=== PATIENT | female | born 1980 | race Two or more races ===

== ENCOUNTER 2023-08-07 08:47 | Observation (INO) | payer BC, SELFPAY ==
[2023-08-07] VITALS (15 sets, daily range): BP systolic 106–133; BP diastolic 64–90; PULSE 65–91; RESP 12–22; TEMP 36.5–37.1; O2SAT 91–99; BMI 28.3; BMI 23.0
--- NOTE | 2023-08-07 | HP_ITS ---
Date:? 08/07/2023 CHIEF COMPLAINT:? Abdominal pain. HISTORY OF PRESENT ILLNESS:? Patient is a 43-year-old female who denies any medical problems, who was sent into the emergency room early this afternoon with a complaint of abdominal pain that began last evening, approximately 8:00 p.m., was initially periumbilical and localized to the right lower quadrant.? She has tenderness, pain with movement.? She did have some nausea and vomiting this morning, but has not vomited since then.? She has not eaten anything today.? Workup in the emergency room revealed normal laboratory evaluation.? She did have a CT scan of the abdomen and pelvis with IV contrast that revealed dilated, inflamed appendix along the right pericolic gutter with a small fecalith at the base of the appendix.? There was no evidence of abscess or perforation.? PAST SURGICAL HISTORY:? Patient does report that she has had a previous laparoscopy for gynecologic reasons in the remote past.? No other abdominal surgery.? No other surgical procedures.? ALLERGIES:? She has allergies to ibuprofen which causes a rash.? No other allergies.? MEDICATIONS:? No prescription medications or [id number] medications.? FAMILY HISTORY:? She denies any family history of GI malignancy or inflammatory bowel disease.? SOCIAL HISTORY:? She is a non-smoker.? She is .? She is employed in [employer].? Denies alcohol use or illicit drug use. REVIEW OF SYSTEMS:? Ten system review of systems is negative for recent weight loss or weight gain.? She denies increased fatigue or light-headedness.? Has had no earache or tinnitus.? No sinus congestion.? No sore throat or hoarseness.? No chest pain, palpitations or syncope.? No chronic cough, shortness of breath, hemoptysis.? She has had the abdominal pain, nausea, vomiting.? No bowel changes.? No diarrhea, constipation, decreased caliber of the stool.? ?No melena, hematochezia or bright red blood per rectum.? No dysuria, frequency, urgency or hematuria.? No headaches, seizures or tremors.? No easy bruising or bleeding.? No heat or cold intolerance.? No polydipsia, polyphagia or polyuria. PHYSICAL EXAM:? VITAL SIGNS:? Patient is afebrile.? Blood pressure is 119/73.? Pulse is 53 and regular.? Respiratory rate is 18.? O2 saturation is 98% on room air.? BMI is 23. GENERAL:? In general, she is a well developed, well nourished female, in mild distress secondary to abdominal pain. HEENT:? Normocephalic, atraumatic.? Sclerae anicteric.? Conjunctiva are not injected.? Oral mucosa is moist, without lesions.? NECK:? Supple.? There is no adenopathy, thyromegaly or JVD. LUNGS:? Clear bilaterally. CARDIAC EXAM:? Regular rhythm and rate without appreciable murmurs, rubs or gallops. ABDOMEN:? Soft.? There is positive bowel sounds, non-distended.? There is right lower quadrant peritoneal signs.? No masses, hepatosplenomegaly or hernias.? No CVA tenderness.? SKIN:? Warm and dry without lesions, rashes or ulcers. NEURO EXAM:? Non-focal.? Non-lateralizing.??? Patient is awake, alert, oriented with appropriate affect. MUSCULOSKELETAL EXAM:? Reveals normal muscle strength, mass and tone. IMAGING:? CT scan was personally reviewed. ASSESSMENT:? A 43-year-old female with less than 24 hour history of abdominal pain localized into the right lower quadrant, now with right lower quadrant peritoneal signs and CT scan with dilated, inflamed appendix with a small fecalith Indications, risks, benefits, alternatives of proceeding with laparoscopic appendectomy were explained extensively to the patient.? Informed consent was obtained.? Patient did receive Zosyn in the emergency room as well as hydration.? All of her questions were answered.? CC:? Patient?s family physician. RON
--- NOTE | 2023-08-07 | OP_ITS ---
OPERATION DATE: ??08/07/2023 PREOPERATIVE DIAGNOSIS:? Acute appendicitis. POSTOPERATIVE DIAGNOSIS:? Acute appendicitis. PROCEDURE:? Laparoscopic appendectomy. SURGEON:? Jace Guzman M.D. ANESTHESIA: ?General endotracheal. ESTIMATED BLOOD LOSS:? Less than 25 mL. INDICATIONS AND CONSENT:? Patient is a 43-year-old female who presented to the emergency room today for abdominal pain that began last evening.? It was mostly periumbilical and localized to the right lower quadrant.? She had normal laboratory evaluation, but workup revealed an inflamed, dilated appendix with small fecalith at the base of the appendix.? On exam, she did have right lower quadrant peritoneal signs.? ?Indications, risks, benefits, alternatives of proceeding with laparoscopic appendectomy were explained extensively to the patient, including risks of bleeding, infection, bowel injury, appendiceal stump leak, need for open procedure, blood clot, pulmonary embolus, heart attack, anesthetic complications and need for further surgery.? All of her questions were answered.? Informed consent was obtained. PROCEDURE:? Patient had been given IV antibiotics in the emergency room, as well as hydrated. ?She was brought to the operating room, placed in the supine position.? General anesthesia was induced.? Fuchs catheter was inserted using sterile technique.? The abdomen was prepped and draped in the usual steroid fashion.? A supraumbilical incision was made with a scalpel blade and carried down through subcutaneous tissue using blunt dissection.? The fascia was grasped and incised.? Two 0 Vicryl stay sutures were placed on either side of the midline fascia.? Kwaku trocar was then inserted and secured using the stay sutures.? The abdomen was then insufflated with carbon dioxide to a pressure of 15 mm/Hg.? The scope was then inserted.? The abdomen was visualized.? Two 5 mm ports were then placed; one in the left lower quadrant and one in the suprapubic area, both under direct visualization.? The appendix was noted to be adherent to the right lateral abdominal side, along the pericolic gutter.? There was edema and some peritoneal adhesions.? The tip was freed up.? Adhesions were lysed sharply.? There was no evidence of perforation or abscess.? The base was mobilized as well and a window created in the avascular portion of the mesoappendix at the base of the appendix.? It was then stapled across the base using a 45 mm purple load of the endoscopic stapler.? There was good hemostasis in the staple line. ?The mesentery was then taken down in sections using the gold vascular medium reloads, two 45 mm length loads.? There was minimal oozing from the one staple line, which was controlled with a clip.? The appendix was then brought out in an Endocatch bag through the umbilical port site.? The abdomen was then copiously irrigated until clear.? There was minimal oozing where the appendix had been mobilized, all in the right pericolic gutter.? Therefore, a 15 round J-P drain was then placed in this area and brought out through the suprapubic port site.? It was secured to the skin using a 3-0 nylon suture and placed to closed bulb suction.? The abdomen was otherwise irrigated until clear.? The left lower quadrant port site was examined.? Upon withdrawal of the port, there was noted to be good hemostasis.? Kwaku trocar was then removed.? Fascia was closed with a 0 Vicryl figure of eight suture.? All port sites were infiltrated with 0.5% Marcaine.? The skin was then closed with interrupted 4-0 subcuticular Monocryl sutures and skin glue.? Sterile dressings were applied.? Sponge and needle counts were correct x2 per nursing personnel.? Patient tolerated the procedure well, was extubated and sent to recovery room in good condition. CC:? Patient?s family physician RON
--- NOTE | 2023-08-07 09:02 | ED.ABDPAIN1 ---
HPI - Abdominal Pain General Chief Complaint: Abdominal Pain Stated Complaint: ABDOMINALPAIN Time Seen by Provider: 08/07/23 08:56 Source: patient Mode of arrival: walk-in History of Present Illness HPI narrative: 43-year-old female presents for abdominal pain. It started about 8 PM last night, thirteen hours ago. It's been continuous. It started near her umbilicus and now is across her lower abdomen. No vomiting constipation or diarrhea. No known fever. No injury. Pain is continuous and severe. Related Data Allergies Allergy/AdvReac Type Severity Reaction Status Date / Time ibuprofen [From Motrin] AdvReac Severe Rash Verified 08/07/23 08:57 Review of Systems ROS Narrative A ten point review of systems is negative except as noted above. Exam Narrative Exam Narrative: Nurses note and vital signs reviewed and patient is not hypoxic. General: The patient appears well and in no apparent distress. Patient is resting comfortably on cart. Skin: Warm, dry, no pallor noted. There is no rash noted. Head: Normocephalic, atraumatic Eye: Normal conjunctiva, no drainage Ears, Nose, Mouth, and Throat: oral mucosa is moist. Nares patent. Cardiovascular: Regular Rate and Rhythm Respiratory: Patient is in no distress, no accessory muscle use, lungs are clear to auscultation, no wheezing, rales or rhonchi Back: non-tender GI: tenderness present across her lower abdomen. No rigidity or masses. Musculoskeletal: The patient has no evidence of calf tenderness, no pitting edema, symmetrical pulses noted bilaterally Neurological: A&O, normal speech Psychiatric: Cooperative Constitutional Vital Signs, click to edit/add: Last Vital Signs Temp 97.7 F 08/07/23 08:51 Pulse 65 08/07/23 11:30 Resp 14 08/07/23 11:30 BP 112/78 08/07/23 12:02 Pulse Ox 95 08/07/23 11:30 O2 Del Method Room Air 08/07/23 11:30 Course Vital Signs Vital signs: Vital Signs Temperature 97.7 F 08/07/23 08:51 Pulse Rate 80 08/07/23 08:51 Respiratory Rate 22 08/07/23 08:51 Blood Pressure 126/90 08/07/23 08:51 Pulse Oximetry 99 08/07/23 08:51 Oxygen Delivery Method Room Air 08/07/23 08:51 Temperature 97.7 F 08/07/23 08:51 Pulse Rate 65 08/07/23 11:30 Respiratory Rate 14 08/07/23 11:30 Blood Pressure 112/78 08/07/23 12:02 Pulse Oximetry 95 08/07/23 11:30 Oxygen Delivery Method Room Air 08/07/23 11:30 MDM - Abdominal Pain MDM Narrative Medical decision making narrative: acute appendicitis is identified on the CAT scan per radiologist. She had some liquid to drink about 6 AM and last ate food about midnight. I've spoken to Dr. Guzman and the patient is being admitted for appendectomy. She was given IV Zosyn here. Treatment diagnosis and disposition were discussed with the patient and her family. Differential Diagnosis Differential diagnosis: Likely abdominal pain, acute appendicitis, calculus of kidney, constipation and diverticulitis Lab Data Attestation: I reviewed the patient's lab results. Labs: Lab Results 08/07/23 Range/Units 09:00 WBC 8.0 (4.0-11.0) 10^3/uL RBC 4.03 L (4.20-5.40) 10^6/uL Hgb 11.6 L (12.0-16.0) g/dL Hct 35.4 L (36.0-48.0) % MCV 87.8 (81.0-99.0) fL MCH 28.8 (26.7-34.0) pg MCHC 32.8 (29.9-35.2) g/dL RDW 12.2 (11.0-15.0) % Plt Count 286 (150-450) 10^3/uL MPV 9.3 L (9.5-13.5) fL Neut % (Auto) 66.2 (43.0-75.0) % Lymph % (Auto) 26.0 (20.5-60.0) % [place] % (Auto) 6.0 (1.7-12.0) % Eos % (Auto) 1.3 (0.9-7.0) % Baso % (Auto) 0.4 (0.2-2.0) % Neut # (Auto) 5.3 (1.4-6.5) 10^3/uL Lymph # (Auto) 2.1 (1.2-3.8) 10^3/uL [place] # (Auto) 0.5 (0.3-0.8) 10^3/uL Eos # (Auto) 0.1 (0.0-0.7) 10^3/uL Baso # (Auto) 0.0 (0.0-0.1) 10^3/uL Abs Immat Gran (auto) 0.01 (0.00-0.03) 10^3/uL Imm/Tot Granulo (auto) 0.1 (0.0-0.5) % Sodium 134 L (136-145) mmol/L Potassium 3.0 L (3.5-5.1) mmol/L Chloride 100 (98-107) mmol/L Carbon Dioxide 25.1 (21.0-32.0) mmol/L Anion Gap 11.9 BUN 16.0 (7.0-18.0) mg/dL Creatinine 0.52 L (0.55-1.02) mg/dL Est GFR ( Amer) >60 (>=60) Est GFR (Non-Af Amer) >60 (>=60) BUN/Creatinine Ratio 30.8 Glucose 103 (74-106) mg/dL Calcium 8.7 (8.5-10.1) mg/dL Total Bilirubin 0.5 (0.2-1.0) mg/dL Direct Bilirubin 0.1 (0.0-0.2) mg/dL AST 22 (15-37) U/L ALT 25 (14-59) U/L Alkaline Phosphatase 77 (46-116) U/L Total Protein 7.9 (6.4-8.2) g/dL Albumin 4.0 (3.4-5.0) g/dL Globulin 3.9 g/dL Albumin/Globulin Ratio 1.0 Amylase 54 (25-115) U/L Lipase 35.0 (16.0-77.0) U/L Serum HCG, Qual Negative (NEGATIVE) Imaging Data CT scan - abdomen: Radiologist's impression: Procedure: CT abdomen pelvis w con EXAMINATION: CT abdomen pelvis w con, 08/07/2023 10:25 AM EST HISTORY: low abd pain COMPARISON: Pelvic ultrasound 05/11/2022 TECHNIQUE: CT of the abdomen, and pelvis was performed following administration of IV contrast. Oral contrast was not administered prior to the examination. Dose reduction techniques were achieved by using automated exposure control and/or adjustment of mA and/or kV according to patient size and/or use of iterative reconstruction technique. FINDINGS: Lung Bases: No acute findings visualized lower chest. Liver: Normal. Biliary tree: Normal. Gallbladder: Normal. Spleen: Normal. Pancreas: Normal. Adrenal glands: Normal. Kidneys and ureters: Normal. Bladder: Mild bladder wall thickening in part relates to underdistention. Reproductive organs: Uterus is grossly unremarkable, noting the endometrium is likely upper limits normal thickness. Left luteal cyst without suspicious adnexal mass. Gastrointestinal tract: Diminutive hiatal hernia. No abnormal bowel dilatation. Colonic diverticulosis, without findings of acute diverticulitis. The appendix appears fluid-filled, abnormally distended, with surrounding periappendiceal inflammation consistent with acute appendicitis; density at the appendiceal base relates to subcentimeter appendicolith versus inspissated contents. Peritoneum/retroperitoneum: No free fluid or gas. No organized drainable collection. Vasculature: Patent. No abdominal aortic aneurysm. Lymph nodes: Normal. Abdominal wall: No acute findings. Small fat-containing inguinal hernia bilaterally. Musculoskeletal: Degenerative change of the spine. IMPRESSION: 1. Acute appendicitis. No findings of perforation, or periappendiceal abscess formation. 2. Mild bladder wall thickening in part relates to underdistention. Correlate with urinalysis if there is clinical concern for cystitis. Electronically authenticated by: MARYANN CLEMENS Date: 08/07/2023 12:16 Discharge Plan Discharge Chief Complaint: Abdominal Pain Clinical Impression: Acute appendicitis Patient Disposition: Admitted as Observation Time of Disposition Decision: 12:32 Condition: Good
[2023-08-07 09:23] LABS: Basophils Percent Auto 0.4 % (0.2-2.0); Eosinophils Absolute Auto 0.1 10^3/uL (0.0-0.7); Eosinophils Percent Auto 1.3 % (0.9-7.0); Hematocrit 35.4 % (36.0-48.0); Hemoglobin 11.6 g/dL (12.0-16.0); Immature Granulocytes Abs Auto 0.01 10^3/uL (0.00-0.03); Immature Granulocytes Pct Auto 0.1 % (0.0-0.5); Lymphocytes Absolute Auto 2.1 10^3/uL (1.2-3.8); Mean Corpuscular HGB Conc 32.8 g/dL (29.9-35.2); Mean Corpuscular Hemoglobin 28.8 pg (26.7-34.0); Mean Corpuscular Volume 87.8 fL (81.0-99.0); Mean Platelet Volume 9.3 fL (9.5-13.5); Monocytes Absolute Auto 0.5 10^3/uL (0.3-0.8); Neutrophils Absolute Auto 5.3 10^3/uL (1.4-6.5); Neutrophils Percent Auto 66.2 % (43.0-75.0); Platelet Count 286 10^3/uL (150-450); Red Blood Count 4.03 10^6/uL (4.20-5.40); Red Cell Distribution Width 12.2 % (11.0-15.0)
[2023-08-07 09:29] LABS: HCG Qualitative NEGATIVE (NEGATIVE)
[2023-08-07 09:32] LABS: Alanine Aminotransferase 25 U/L (14-59); Alkaline Phosphatase 77 U/L (46-116); Amylase 54 U/L (25-115); Anion Gap 11.9; Aspartate Amino Transferase 22 U/L (15-37); BUN Creatinine Ratio 30.8; Bilirubin Direct 0.1 mg/dL (0.0-0.2); Bilirubin Total 0.5 mg/dL (0.2-1.0); Calcium 8.7 mg/dL (8.5-10.1); Carbon Dioxide 25.1 mmol/L (21.0-32.0); Chloride 100 mmol/L (98-107); Estimated GFR (African America >60 (>=60); Estimated GFR (Non-African Ame >60 (>=60); Globulin 3.9 g/dL; Glucose 103 mg/dL (74-106); Sodium 134 mmol/L (136-145); Total Protein 7.9 g/dL (6.4-8.2)
[2023-08-07] MEDS: MORPHINE SULFATE 4 MG/ML VIAL IV (09:37)
[2023-08-07] MEDS: ONDANSETRON PF 4 MG/2 ML VIAL IV (09:37)
--- NOTE | 2023-08-07 10:32 | CT_ITS ---
The [address] [address] Patient Name: ZACH MACIEL MRN: [id number] date: 1980 Sex: F Assigned Patient Location: ER Current Patient Location: ER Accession/Order Number: [id number] Exam Date: 08/07/2023 10:25 Report Date: 08/07/2023 12:16 At the request of: DEMETRIO TURNER Procedure: CT abdomen pelvis w con EXAMINATION: CT abdomen pelvis w con, 08/07/2023 10:25 AM EST HISTORY: low abd pain COMPARISON: Pelvic ultrasound 05/11/2022 TECHNIQUE: CT of the abdomen, and pelvis was performed following administration of IV contrast. Oral contrast was not administered prior to the examination. Dose reduction techniques were achieved by using automated exposure control and/or adjustment of mA and/or kV according to patient size and/or use of iterative reconstruction technique. FINDINGS: Lung Bases: No acute findings visualized lower chest. Liver: Normal. Biliary tree: Normal. Gallbladder: Normal. Spleen: Normal. Pancreas: Normal. Adrenal glands: Normal. Kidneys and ureters: Normal. Bladder: Mild bladder wall thickening in part relates to underdistention. Reproductive organs: Uterus is grossly unremarkable, noting the endometrium is likely upper limits normal thickness. Left luteal cyst without suspicious adnexal mass. Gastrointestinal tract: Diminutive hiatal hernia. No abnormal bowel dilatation. Colonic diverticulosis, without findings of acute diverticulitis. The appendix appears fluid-filled, abnormally distended, with surrounding periappendiceal inflammation consistent with acute appendicitis; density at the appendiceal base relates to subcentimeter appendicolith versus inspissated contents. Peritoneum/retroperitoneum: No free fluid or gas. No organized drainable collection. Vasculature: Patent. No abdominal aortic aneurysm. Lymph nodes: Normal. Abdominal wall: No acute findings. Small fat-containing inguinal hernia bilaterally. Musculoskeletal: Degenerative change of the spine. CT/CT abdomen pelvis w con IMPRESSION: 1. Acute appendicitis. No findings of perforation, or periappendiceal abscess formation. 2. Mild bladder wall thickening in part relates to underdistention. Correlate with urinalysis if there is clinical concern for cystitis. Electronically authenticated by: MARYANN CLEMENS Date: 08/07/2023 12:16
[2023-08-07] MEDS: PIPERACILLIN SODIUM/TAZOBACTAM 3.375 GM in 0.9 % SODIUM CHLORIDE 50 ML IV ×2 (13:02→20:02)
[2023-08-07] MEDS: LACTATED RINGER'S SOLUTION 1,000 ML 75 ML IV ×3 (14:18→20:03)
[2023-08-07] MEDS: BUPIVACAINE HCL 0.5% PF 50 MG/10 ML VIAL 20 ML INJ ×2 (18:05→18:06)
--- NOTE | 2023-08-07 19:42 | PC.NURSE ---
two dressings CDI
[2023-08-07] MEDS: PANTOPRAZOLE SODIUM 40 MG VIAL IV (20:03)
[2023-08-07] MEDS: HYDROCODONE/ACET 5-325 MG TABLET 1 TAB PO (23:37)
[2023-08-08 00:02] VITALS: BP 110/62; PULSE 80; RESP 16; TEMP 36.8; O2SAT 94
[2023-08-08 04:00] VITALS: BP 112/62; PULSE 82; RESP 16; TEMP 36.6; O2SAT 94
[2023-08-08] MEDS: PIPERACILLIN SODIUM/TAZOBACTAM 3.375 GM in 0.9 % SODIUM CHLORIDE 50 ML IV (04:10)
[2023-08-08 05:49] LABS: Basophils Percent Auto 0.1 % (0.2-2.0); Hematocrit 32.3 % (36.0-48.0); Hemoglobin 10.5 g/dL (12.0-16.0); Immature Granulocytes Abs Auto 0.03 10^3/uL (0.00-0.03); Immature Granulocytes Pct Auto 0.3 % (0.0-0.5); Lymphocytes Absolute Auto 1.4 10^3/uL (1.2-3.8); Lymphocytes Percent Auto 15.9 % (20.5-60.0); Mean Corpuscular HGB Conc 32.5 g/dL (29.9-35.2); Mean Corpuscular Hemoglobin 29.2 pg (26.7-34.0); Mean Corpuscular Volume 89.7 fL (81.0-99.0); Mean Platelet Volume 9.5 fL (9.5-13.5); Monocytes Absolute Auto 0.5 10^3/uL (0.3-0.8); Monocytes Percent Auto 5.7 % (1.7-12.0); Neutrophils Absolute Auto 6.7 10^3/uL (1.4-6.5); Platelet Count 240 10^3/uL (150-450); Red Cell Distribution Width 12.3 % (11.0-15.0); White Blood Count 8.6 10^3/uL (4.0-11.0)
[2023-08-08 06:10] LABS: Anion Gap 14.2; BUN Creatinine Ratio 10.9; Calcium 8.4 mg/dL (8.5-10.1); Carbon Dioxide 25.3 mmol/L (21.0-32.0); Chloride 105 mmol/L (98-107); Estimated GFR (African America >60 (>=60); Estimated GFR (Non-African Ame >60 (>=60); Glucose 116 mg/dL (74-106); Potassium 3.5 mmol/L (3.5-5.1); Sodium 141 mmol/L (136-145)
[2023-08-08] MEDS: LACTATED RINGER'S SOLUTION 1,000 ML 75 ML IV (09:05)
[2023-08-08] MEDS: HYDROCODONE/ACET 5-325 MG TABLET 1 TAB PO ×2 (09:06→13:53)
[2023-08-08 11:34] VITALS: O2SAT 97
--- NOTE | 2023-08-08 11:35 | PC.NURSE ---
GORDO drain removed per Dr. Guzman. Patient tolerated well. ABD applied
--- NOTE | 2023-08-08 12:17 | PM.GSPN ---
Progress Note: A&P Assessment and Plan (1) Acute appendicitis: Assessment and Plan: doing well, labs stable, tolerating diet. Plan caleb drain removed, will discharge to home; follow up next week in office, call sooner if problems/questions Subjective Subjective Interval history: POD # 1 s/p LS appendectomy for acute appendicitis; pain around drain; tolerating regular diet, no N/V, voiding well. Exam Constitutional Vital Signs, click to edit/add: Last Vital Signs Temp 97.8 F 08/08/23 04:00 Pulse 82 08/08/23 04:00 Resp 16 08/08/23 04:00 BP 112/62 08/08/23 04:00 Pulse Ox 97 08/08/23 11:34 O2 Del Method Room Air 08/08/23 11:34 GI Other: soft, nondistended; incisions without erythema or drainage; caleb with minimal serosanguinous drainage Urinary Catheter Management Urinary Catheter Management Urethral: Cath placed during this visit: no
== END 2023-08-08 14:14 | disposition home or self-care (01) ==
LOC: ER 12:39 → MS 12:45
PROVIDERS: Admitting Provider Surgery; Emergency Provider Emergency Medicine; PCP Family Medicine; Visit Provider Surgery
PROC: (CPT 44970; principal; 2023-08-07 17:00)
DX: K35.80 Unspecified acute appendicitis (principal)
CPT/HCPCS: 44970; 36415; 74177; 80048; 80076; 82150; 83690; 84703; 85025; 88304; 94667; 94761; 96365; 96366; 96375; 96376; 99285; G0378; J2704; Q9967

== ENCOUNTER 2024-04-13 23:57 | Emergency (ER) | payer BC, SELFPAY ==
[2024-04-14] VITALS (15 sets, daily range): BP systolic 101–136; BP diastolic 64–86; PULSE 70–81; TEMP 37.1; O2SAT 95–99; BMI 28.3
--- NOTE | 2024-04-14 00:26 | ED_ITS ---
HPI HPI - General Adult General Chief complaint: Chest Pain Stated complaint: chest and back pain Time Seen by Provider: 04/14/24 00:10 Source: patient Mode of arrival: walk-in Limitations: no limitations History of Present Illness HPI narrative: patient describes past history of lower back pain from arthritis. States she has been experiencing increasing pain of her lower back and points to the left SI joint area. states the pain radiates up her back and now down her leg. Also complains of pain right hip. Not getting relief with Tylenol. No fever or chills Related Data Previous Rx's ?Medication ?Instructions ?Recorded hydrocodone 5 mg-acetaminophen 325 1 tab PO Q6H PRN Pain Scale 4-6 08/08/23 mg tablet #12 tabs Allergies Allergy/AdvReac Type Severity Reaction Status Date / Time ibuprofen [From Motrin] AdvReac Severe Rash Verified 04/14/24 00:05 Opioid HPI Opioid Management Most Recent Opioid Data: 2 Last Pain Scale 6 08/08/23 13:00 Review of Systems 2 ROS0 Status of ROS 10 or more systems reviewed and unremark able except as noted in history and below Exam Constitutional Vital Signs, click to edit/add: Last Vital Signs Temp 98.7 F 04/14/24 00:05 Pulse 74 04/14/24 03:30 Resp 18 04/14/24 03:30 BP 101/64 04/14/24 03:30 Pulse Ox 95 04/14/24 03:30 O2 Del Method Room Air 04/14/24 00:05 Common normals: no apparent distress, average body habitus, oriented x3, no limitations, healthy appearing, alert and well nourished [facility] Common normals: normocephalic and head/scalp atraumatic Eye Common normals: PERRL, EOMs intact bilaterally and conjunctivae normal Respiratory Common normals: normal respiratory effort, no retractions, no use of accessory muscles and clear to auscultation bilaterally Cardio Common normals: regular rate, regular rhythm, S1 normal heart sound and S2 normal heart sound GI Common normals: Normal to inspection, nondistended, normoactive bowel sounds present, soft to palpation and non-tender Back & Pelvis Common normals: no CVA tenderness Back image (female): 2 1. tenderness left SI joint 2. tender right hip Extremity Common normals: normal to inspection and full ROM Neuro Common normals: oriented x3, CN's II-XII intact bilaterally, moves all extremities and no focal motor deficits Psych Appearance: grossly normal Course Vital Signs Vital signs: Vital Signs Temperature 98.7 F 04/14/24 00:05 Pulse Rate 78 04/14/24 00:05 Respiratory Rate 18 04/14/24 00:05 Pulse Oximetry 99 04/14/24 00:05 Oxygen Delivery Method Room Air 04/14/24 00:05 Temperature 98.7 F 04/14/24 00:05 Pulse Rate 74 04/14/24 03:30 Respiratory Rate 18 04/14/24 03:30 Blood Pressure 101/64 04/14/24 03:30 Pulse Oximetry 95 04/14/24 03:30 Oxygen Delivery Method Room Air 04/14/24 00:05 Medical Decision Making MDM Narrative Medical decision making narrative: patient presents complaining of pain right hip and left back at SI joint. Atypical pain that radiates up her back. Exam with mild tenderness at both sites. diagnostic CT without findings to explain her pain. Patient medicated in the department and pain now is tolerable. Discharged with Toradol and Norflex prescriptions and advised to follow up with family doctor Lab Data Labs: Lab Results 04/14/24 04/14/24 Range/Units 00:50 00:55 WBC 7.6 (4.0-11.0) 10^3/uL RBC 3.81 L (4.20-5.40) 10^6/uL Hgb 11.2 L (12.0-16.0) g/dL Hct 34.8 L (36.0-48.0) % MCV 91.3 (81.0-99.0) fL MCH 29.4 (26.7-34.0) pg MCHC 32.2 (29.9-35.2) g/dL RDW 12.3 (11.0-15.0) % Plt Count 234 (150-450) 10^3/uL MPV 9.4 L (9.5-13.5) fL Neut % (Auto) 56.9 (43.0-75.0) % Lymph % (Auto) 31.7 (20.5-60.0) % [place] % (Auto) 8.2 (1.7-12.0) % Eos % (Auto) 2.4 (0.9-7.0) % Baso % (Auto) 0.4 (0.2-2.0) % Neut # (Auto) 4.4 (1.4-6.5) 10^3/uL Lymph # (Auto) 2.4 (1.2-3.8) 10^3/uL [place] # (Auto) 0.6 (0.3-0.8) 10^3/uL Eos # (Auto) 0.2 (0.0-0.7) 10^3/uL Baso # (Auto) 0.0 (0.0-0.1) 10^3/uL Abs Immat Gran (auto) 0.03 (0.00-0.03) 10^3/uL Imm/Tot Granulo (auto) 0.4 (0.0-0.5) % Sodium 138 (136-145) mmol/L Potassium 3.5 (3.5-5.1) mmol/L Chloride 103 (98-107) mmol/L Carbon Dioxide 26.6 (21.0-32.0) mmol/L Anion Gap 11.9 BUN 15.0 (7.0-18.0) mg/dL Creatinine 0.88 (0.55-1.02) mg/dL Est GFR ( Amer) >60 (>=60) Est GFR (Non-Af Amer) >60 (>=60) BUN/Creatinine Ratio 17.0 Glucose 112 H (74-106) mg/dL Lactate 0.9 (0.4-2.0) mmol/L Calcium 9.0 (8.5-10.1) mg/dL Total Bilirubin 0.3 (0.2-1.0) mg/dL AST 18 (15-37) U/L ALT 33 (14-59) U/L Alkaline Phosphatase 81 (46-116) U/L Total Protein 7.3 (6.4-8.2) g/dL Albumin 3.8 (3.4-5.0) g/dL Globulin 3.5 g/dL Albumin/Globulin Ratio 1.1 Urine Color Lt. yellow (YELLOW) Urine Clarity Clear (CLEAR) Urine pH 6.0 (5.0-9.0) Ur Specific [place] 1.020 (1.005-1.025) Urine Protein Negative (NEG/TRACE) mg/dL Urine Glucose (UA) Negative (NEGATIVE) mg/dL Urine Ketones Negative (NEGATIVE) mg/dL Urine Occult Blood Negative (NEGATIVE) Urine Nitrite Negative (NEGATIVE) Urine Bilirubin Negative (NEGATIVE) Urine Urobilinogen 0.2 (0.2-1.0) EU/dL Ur Leukocyte Esterase Negative (NEGATIVE) Imaging Data Abdominal x-ray: Radiologist's impression: ITS Impressions Abdomen/Pelvis CT 04/14/24 00:30 IMPRESSION: 1. No acute findings. 2. Remote appendectomy. 3. Small fat-containing umbilical and supraumbilical omental hernias. No bowel herniation. No inflammatory changes. Electronically authenticated by: HUEY RAMIREZ Date: 04/14/2024 02:58 Discharge Plan Discharge Stand Alone Forms: Portal Instructions Chief Complaint: Chest Pain Clinical Impression: Back pain Patient Disposition: Home, Self-Care Mode of Transportation: Private Vehicle Prescriptions / Home Meds: No Action hydrocodone-acetaminophen 5-325 mg Tablet 1 tab PO Q6H PRN (Reason: Pain Scale 4-6) Qty: 12 0RF Print Language: Indonesian Instructions: Back Pain (ED) Additional Instructions: follow up with your family doctor next week or with Dr Negron Referrals: ARI ORTEGA [Primary Care Provider] - 1 week
--- NOTE | 2024-04-14 00:30 | CT_ITS ---
The [address] [address] Patient Name: ZACH MACIEL MRN: [id number] date: 1980 Sex: F Assigned Patient Location: ER Current Patient Location: ER Accession/Order Number: [id number] Exam Date: 04/14/2024 01:21 Report Date: 04/14/2024 02:58 At the request of: DIANA STANFORD Procedure: CT abdomen pelvis w con CT OF THE ABDOMEN AND PELVIS WITH CONTRAST: 04/14/2024 1:21 AM EDT CLINICAL HISTORY: Pelvic pain x5 days. COMPARISONS: CT abdomen and pelvis with contrast 08/07/2023. TECHNIQUE: Thin section axial CT images were obtained from the lung bases to the pubis symphysis. This CT exam was performed using one or more of the following dose reduction techniques: Automated exposure control, adjustment of the mA and/or kV according to patient size, or use of iterative reconstruction technique. Thin section coronal and sagittal images were reconstructed from the axial data set. All images were reviewed and interpreted. CONTRAST: Intravenous contrast was administered. Type and amount is documented at the local institution. FINDINGS: LUNG BASES: No consolidation or pleural fluid. LIVER: Normal. GALLBLADDER: Normal. BILIARY TREE: No ductal dilatation. PANCREAS: Normal. SPLEEN: Normal. ADRENALS: Normal. KIDNEYS: Normal, without urolithiasis or hydronephrosis. URINARY BLADDER: Grossly unremarkable. PELVIC STRUCTURES: Unremarkable for age. Menstrual changes of uterus. Correlate with menstrual cycle history. BOWEL: No evidence of obstruction, gross mass, or inflammatory change. There is no significant diverticulosis. There is no evidence of diverticulitis. APPENDIX: Surgically absent. LYMPH NODES: No adenopathy. PERITONEUM: No intraperitoneal free air. No free intraperitoneal fluid. MESENTERY: Unremarkable. RETROPERITONEUM: The retroperitoneum is unremarkable. AORTA: Normal in caliber. BODY WALL: Small fat-containing umbilical and supraumbilical fat-containing hernias. Defect alignment is fascia. Together these extend 5.2 cm in length. New since 08/07/2023 and appendectomy. Abdominal otherwise intact. OSSEOUS STRUCTURES: No destructive osseous lesion or displaced fracture. CT/CT abdomen pelvis w con IMPRESSION: 1. No acute findings. 2. Remote appendectomy. 3. Small fat-containing umbilical and supraumbilical omental hernias. No bowel herniation. No inflammatory changes. Electronically authenticated by: HUEY RAMIREZ Date: 04/14/2024 02:58
--- NOTE | 2024-04-14 00:58 | ECG_ITS ---
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
[2024-04-14 01:08] LABS: Basophils Percent Auto 0.4 % (0.2-2.0); Eosinophils Absolute Auto 0.2 10^3/uL (0.0-0.7); Eosinophils Percent Auto 2.4 % (0.9-7.0); Hematocrit 34.8 % (36.0-48.0); Hemoglobin 11.2 g/dL (12.0-16.0); Immature Granulocytes Abs Auto 0.03 10^3/uL (0.00-0.03); Immature Granulocytes Pct Auto 0.4 % (0.0-0.5); Lymphocytes Absolute Auto 2.4 10^3/uL (1.2-3.8); Lymphocytes Percent Auto 31.7 % (20.5-60.0); Mean Corpuscular HGB Conc 32.2 g/dL (29.9-35.2); Mean Corpuscular Hemoglobin 29.4 pg (26.7-34.0); Mean Corpuscular Volume 91.3 fL (81.0-99.0); Mean Platelet Volume 9.4 fL (9.5-13.5); Monocytes Absolute Auto 0.6 10^3/uL (0.3-0.8); Monocytes Percent Auto 8.2 % (1.7-12.0); Neutrophils Absolute Auto 4.4 10^3/uL (1.4-6.5); Neutrophils Percent Auto 56.9 % (43.0-75.0); Platelet Count 234 10^3/uL (150-450); Red Blood Count 3.81 10^6/uL (4.20-5.40); Red Cell Distribution Width 12.3 % (11.0-15.0); White Blood Count 7.6 10^3/uL (4.0-11.0)
[2024-04-14 01:09] LABS: Bilirubin Urine NEGATIVE (NEGATIVE); Blood Urine NEGATIVE (NEGATIVE); Clarity Urine CLEAR (CLEAR); Color Urine LT. YELLOW (YELLOW); Glucose Urine UA NEGATIVE (NEGATIVE); Ketones Urine NEGATIVE (NEGATIVE); Leukocyte Esterase Urine NEGATIVE (NEGATIVE); Nitrite Urine NEGATIVE (NEGATIVE); Protein Urine NEGATIVE (NEG/TRACE); Urobilinogen Urine 0.2 EU/dL (0.2-1.0)
[2024-04-14] MEDS: 0.9 % SODIUM CHLORIDE 1,000 ML 999 ML IV (01:09)
[2024-04-14 01:10] LABS: Urine Microscopic Indicated NO
[2024-04-14] MEDS: METHYLPREDNISOLONE SOD SUCC PF 125 MG/2 ML VIAL IVP (01:10)
[2024-04-14] MEDS: ORPHENADRINE 60 MG/ 2 ML VIAL IV (01:11)
[2024-04-14 01:26] LABS: Alanine Aminotransferase 33 U/L (14-59); Albumin Globulin Ratio 1.1; Albumin Level 3.8 g/dL (3.4-5.0); Alkaline Phosphatase 81 U/L (46-116); Anion Gap 11.9; Aspartate Amino Transferase 18 U/L (15-37); Bilirubin Total 0.3 mg/dL (0.2-1.0); Carbon Dioxide 26.6 mmol/L (21.0-32.0); Chloride 103 mmol/L (98-107); Estimated GFR (African America >60 (>=60); Estimated GFR (Non-African Ame >60 (>=60); Globulin 3.5 g/dL; Glucose 112 mg/dL (74-106); Potassium 3.5 mmol/L (3.5-5.1); Sodium 138 mmol/L (136-145); Total Protein 7.3 g/dL (6.4-8.2)
--- NOTE | 2024-04-14 01:27 | PC.NURSE ---
pt c/o bilateral lower back pain that started monday. left side of lower back, pain radiates to upper back.
[2024-04-14 01:29] LABS: Lactate/Lactic Acid 0.9 mmol/L (0.4-2.0)
[2024-04-14] MEDS: MAGNESIUM SULFATE IN WATER 2 GM/50 ML PREMIX IV (01:32)
== END 2024-04-14 04:01 | disposition home or self-care (01) ==
PROVIDERS: Emergency Provider Internal Medicine; PCP Family Medicine
DX: M54.9 Dorsalgia, unspecified (principal); K42.9 Umbilical hernia without obstruction or gangrene
CPT/HCPCS: 36415; 74177; 80053; 81003; 83605; 85025; 93005; 96365; 96375; 99285; J2360; J2919; J3475; Q9967